=== PATIENT | female | born 1945 | race African-American/Black ===

== ENCOUNTER 2016-11-03 09:08 | Emergency (ER) | payer MEDICARE ==
[~2016-11-03 09:08] MED LIST: ANTIVERT PO; ASPIRINEC PO; CIPRO PO; DIOVAN PO; HCTZ; LORTAB 5/500 TA1 TA2 PO; MOTION SICKNESS25 M4 PO; OMNICEF300 MG PO; PERCOCET5/325 PO; ZITHROMAX1 G/PKT PO
== END 2016-11-03 11:05 | disposition home or self-care (01) ==
LOC: CED 09:08
DX: R22.0 Localized swelling, mass and lump, head (principal); T37.0X5A Adverse effect of sulfonamides, initial encounter; I10 Essential (primary) hypertension; Z90.710 Acquired absence of both cervix and uterus; Z79.2 Long term (current) use of antibiotics; Z79.899 Other long term (current) drug therapy; Z91.041 Radiographic dye allergy status
CPT/HCPCS: 96374; 96375; 99283; J1200; J2930

== ENCOUNTER 2016-12-17 15:21 | Emergency (ER) | payer MEDICARE ==
[~2016-12-17] VITALS: Ht 162.6 cm; Wt 88.9 kg
[2016-12-17 16:14] LABS: URINE SOURCE CLEAN CATCH
[2016-12-17 16:21] LABS: URINE APPEARANCE CLOUDY; URINE BILIRUBIN NEG (NEG); URINE BLOOD 3+ (NEG); URINE COLOR YELLOW; URINE GLUCOSE NEG (NEG); URINE KETONE NEG (NEG); URINE LEUKOCYTE ESTERASE 3+ (NEG); URINE NITRATE POS (NEG); URINE PROTEIN 2+ (NEG); URINE SPECIFIC GRAVITY 1.018 (1.003-1.035); URINE UROBILINOGEN 0.2 MG/DL (NEG)
[2016-12-17 16:23] LABS: CULTURE INDICATED? YES; URBCS1 AUWI 50-100 /[HPF] (0-2); URINE BACTERIA AUWI 4+ (NEGATIVE); URINE SQUAMOUS EPITHELIAL CELL OCC /[HPF]; UWBCS1 AUWI INNUM (0-5)
== END 2016-12-17 17:00 | disposition home or self-care (01) ==
LOC: CED 15:21 → CFTX 15:21
DX: N30.00 Acute cystitis without hematuria (principal); I10 Essential (primary) hypertension; E78.5 Hyperlipidemia, unspecified; Z90.710 Acquired absence of both cervix and uterus; Z88.2 Allergy status to sulfonamides
CPT/HCPCS: 81003; 87086; 87088; 87186; 99283

== ENCOUNTER 2016-12-24 01:04 | Emergency (ER) | payer MEDICARE ==
[~2016-12-24] VITALS: Ht 162.6 cm; Wt 88.9 kg
[2016-12-24 02:55] LABS: URINE APPEARANCE CLEAR; URINE BILIRUBIN NEG (NEG); URINE BLOOD NEG (NEG); URINE COLOR YELLOW; URINE GLUCOSE NEG (NEG); URINE KETONE NEG (NEG); URINE LEUKOCYTE ESTERASE NEG (NEG); URINE NITRATE NEG (NEG); URINE PROTEIN NEG (NEG); URINE SPECIFIC GRAVITY 1.021 (1.003-1.035); URINE UROBILINOGEN 0.2 MG/DL (NEG)
[2016-12-24 02:58] LABS: CULTURE INDICATED? NO
== END 2016-12-24 03:48 | disposition home or self-care (01) ==
LOC: CED 01:04
PROVIDERS: Nurse Practitioner Family
DX: R21 Rash and other nonspecific skin eruption (principal); T37.8X5A Adverse effect of other specified systemic anti-infectives and antiparasitics, initial encounter; I10 Essential (primary) hypertension; J45.909 Unspecified asthma, uncomplicated; Z90.710 Acquired absence of both cervix and uterus; Z79.899 Other long term (current) drug therapy; Z88.8 Allergy status to other drugs, medicaments and biological substances; Z88.1 Allergy status to other antibiotic agents
CPT/HCPCS: 81003; 99283